=== PATIENT | female | born 1995 | race Caucasian/White ===

== ENCOUNTER → 2017-01-07 | Outpatient (CLI) | payer OTHER | END | disposition home or self-care (01) | LOC: LABWHC1 10:21 | PROVIDERS: ATTEND Obstetrics & Gynecology | DX: Z34.00 Encounter for supervision of normal first pregnancy, unspecified trimester (principal); Z3A.00 Weeks of gestation of pregnancy not specified | CPT/HCPCS: 36415; 84702 ==

== ENCOUNTER → 2017-01-15 | Outpatient (CLI) | payer OTHER | END | disposition home or self-care (01) | LOC: LABWHC1 17:08 | PROVIDERS: ATTEND Obstetrics & Gynecology | DX: O02.1 Missed abortion (principal); Z3A.00 Weeks of gestation of pregnancy not specified | CPT/HCPCS: 36415; 84702 ==

== ENCOUNTER → 2017-07-11 | Outpatient (CLI) | payer OTHER ==
--- NOTE | 2017-07-11 19:47 | US ---
EXAMINATION TYPE: Transabdominal DATE OF EXAM: 07/01/17 COMPARISON: NONE CLINICAL HISTORY: Z36 CONFIRM DATES. Confirm dates EXAM PERFORMED: Transabdominal (TA) EXAM MEASUREMENTS: GESTATIONAL AGE / DATING Physician Established: not yet established Dates by LMP: (14 weeks/6 days) EDC: 01/03/18 Dates by First Scan: No previous this is first scan Dates by Current Scan for: (13 weeks/6 days) EDC: 01/10/18 MATERNAL ANATOMY Uterus: 14.1 x 5.3 x 9.5cm Right Ovary: 3.5 x 1.7 x 1.7cm Left Ovary: 3.4 x 2.4 x 2.3cm Post CDS / Adnexa: wnl Presence of free fluid: no GESTATION / SURVEY CRL: 7.2cm (13 weeks/3 days) Yolk Sac (normal less than 6mm): 0.4cm Heart Rate: 163 bpm Rhythm: Normal IUP: Viable IUP Date of LMP: 03/29/17 Beta HcG (if available): Not available at this time Single viable IUP 13wks/6days with BEATA of 01/10/18. IMPRESSION: Ultrasound gestational age is 13 weeks and 6 days. No complicating process seen.
== END | disposition home or self-care (01) ==
LOC: RADUSWWP 16:16
PROVIDERS: ATTEND Obstetrics & Gynecology
DX: Z36.89 Encounter for other specified antenatal screening (principal); Z3A.13 13 weeks gestation of pregnancy
CPT/HCPCS: 76801

== ENCOUNTER 2018-01-06 06:01 | Inpatient (IN) | payer OTHER ==
[2018-01-06] MEDS ORDERED: CARBOPROST TROMETHAMINE 250 MCG/ML 1 ML AMP IM PRN (06:14)
[2018-01-06] MEDS ORDERED: OXYTOCIN 10 UNIT/ML 1 ML VIAL IM PRN (06:14)
[2018-01-06] MEDS ORDERED: LIDOCAINE 0.5% (PF) 5 MG/ML (50 ML SDV) SQ PRN (06:14)
[2018-01-06] MEDS ORDERED: TERBUTALINE 1 MG/ML VIAL SQ PRN (06:14)
[2018-01-06] MEDS ORDERED: METHYLERGONOVINE 0.2 MG/ML 1 ML AMP IM PRN (06:14)
[2018-01-06] MEDS ORDERED: OXYTOCIN 20 UNITS/1000 ML NS 1,000 ML IV SCH (06:14)
--- NOTE | 2018-01-06 06:19 | P.HPOB ---
History of Present Illness H&P Date: 01/06/18 Chief Complaint: Requested induction of labor. This patient is a pleasant 22-year-old 2 para 0 female estimated date of confinement 01/10/2018 estimated gestational age 39-3/7 weeks who presents to labor and delivery for requested induction of labor. Patient's care for the most part was uncomplicated. She did have an ultrasound done here which showed a possible cleft lip however she was referred to maternal- medicine and there was no evidence of cleft lip or palate. Patient has been quite uncomfortable and has requested induction at this time. Review of Systems Gastrointestinal: Reports heartburn Genitourinary: Reports Menstruation: Reports amenorrhea Past Medical History Past Medical History: No Reported History History of Any Multi-Drug Resistant Organisms: None Reported Past Surgical History: No Surgical Hx Reported Past Anesthesia/Blood Transfusion Reactions: No Reported Reaction Past Psychological History: No Psychological Hx Reported Smoking Status: Never smoker Past Alcohol Use History: None Reported Past Drug Use History: None Reported Medications and Allergies Allergies Allergy/AdvReac Type Severity Reaction Status Date / Time No Known Allergies Allergy Verified 01/06/18 06:14 Exam - OBG Physical Exam Abdomen: bowel sounds normal, no diffuse tenderness, no bruit present, no guarding noted, no hepatomegaly, no splenomegaly, no mass Vulva: both: normal Vagina: normal moisture, no discharge Cervix: no lesion (Cervix in the office was 3 cm and 50% effaced.), no discharge Uterus: enlarged (Fundal height is 37 cm) Results blood work shows she is O positive, rubella nonimmune, RPR is nonreactive, hepatitis B is negative, HIV was nonreactive, toxoplasmosis was negative, Glucola was normal, ultrasounds as above,, group B strep was negative. Assessment and Plan Assessment: This is a pleasant 22-year-old 2 para 0 female 39-3/7 weeks gestation who is requesting elective induction of labor at this time. Plan is induction of labor and anticipate vaginal delivery. (1) Third trimester Current Visit: Yes Status: Acute Code(s): Z34.93 - ENCNTR FOR SUPRVSN OF NORMAL PREG, UNSP, THIRD TRIMESTER SNOMED Code(s): 51797429 (2) Elective induction of labor planned Current Visit: Yes Status: Acute Code(s): EVT6669 - SNOMED Code(s): 835004277
[2018-01-06] MEDS: LACTATED RINGERS 1,000 ML IV SCH ×3 (06:21→13:18)
[2018-01-06 06:36] LABS: Basophils % (A) 0 %; Eosinophils # (A) 0.1 k/uL (0-0.7); Eosinophils % (A) 1 %; HCT 34.6 % (34.0-46.0); HGB 11.5 gm/dL (11.4-16.0); Lymphocytes # (A) 1.5 k/uL (1.0-4.8); Lymphocytes % (A) 21 %; MCH 29.7 pg (25.0-35.0); MCHC 33.3 g/dL (31.0-37.0); MCV 89.3 fL (80.0-100.0); Mean Platelet Volume 7.9; Monocytes # (A) 0.4 k/uL (0-1.0); Monocytes % (A) 6 %; Neutrophils % (A) 70 %; Platelet Count 214 k/uL (150-450); RBC 3.88 m/uL (3.80-5.40); RDW 12.9 % (11.5-15.5); WBC 7.2 k/uL (3.8-10.6)
[2018-01-06 06:44] VITALS: BMI 29.0
[2018-01-06] MEDS ORDERED: BUTORPHANOL 1 MG/ML 1 ML VIAL IV PRN (07:52)
[2018-01-06] MEDS ORDERED: fentaNYL (PF) 50 MCG/ML 5 ML AMP ONE (13:00)
[2018-01-06] MEDS ORDERED: ROPIVACAINE 5MG/ML 20ML VIAL ONE (13:00)
[2018-01-06] MEDS ORDERED: SODIUM CHLORIDE 0.9% 100 ML BAG ONE (13:00)
[2018-01-06] MEDS ORDERED: SIMETHICONE 80 MG CHEWABLE PO PRN (16:53)
[2018-01-06] MEDS ORDERED: LANOLIN CREAM 5 GM TUBE TOPICAL PRN (16:53)
[2018-01-06] MEDS ORDERED: ZOLPIDEM 5 MG TAB PO PRN (16:53)
[2018-01-06] MEDS ORDERED: HYDROCORTISONE 2.5% RECTAL CREAM 30 GM TUBE RECTAL PRN (16:53)
[2018-01-06] MEDS ORDERED: diphenhydrAMINE 25 MG CAP PO PRN (16:53)
[2018-01-06] MEDS ORDERED: BENZOCAINE/MENTHOL SPRAY 1 GM/SPRAY AEROSOL TOPICAL PRN (16:53)
[2018-01-06] MEDS ORDERED: diphenhydrAMINE 50 MG/ML 1 ML VIAL IVP PRN (16:53)
[2018-01-06] MEDS ORDERED: WITCH HAZEL 1 EACH MED..PAD TOPICAL PRN (16:53)
[2018-01-06] MEDS ORDERED: BISACODYL 10 MG SUPP RECTAL PRN (16:53)
--- NOTE | 2018-01-06 17:08 | P.PROBDLV ---
Vaginal Delivery Note - . Vaginal Delivery Note: Normal vaginal delivery viable female Apgars 9 and 9 delivery time is 1645 hrs. Please see dictated H&P for intimate details of this patient's admission. In brief summary this is a pleasant 22-year-old 2 para 0 female 39-3/7 weeks gestation who is admitted to labor and delivery for requested induction of labor. On admission patient is 3-4 simmers dilated has artificial rupture membranes for clear fluid. Labor is induced with Pitocin per protocol. Labor progresses and she gets one dose of Stadol and then request an epidural. Patient quickly thereafter gets to complete. Patient's epidural is quite dense and she has no urge to push so at this time the epidural was discontinued and the patient is allowed to labor down until she has the urge to push at this time she pushes in the head crowned. We have controlled delivery of the 's head over the intact perineum. Mouth and nares are bulb suctioned. There is a loose nuchal cord which the she spontaneously delivers through the anterior posterior shoulder without maternal effort. This is a vigorous viable female infant Apgars are 9 and 9 delivery time was 1645 hrs. is late on the mother's abdomen. After the cord is done pulsating is doubly clamped and then cut. It appears to be trivascular. The placenta is then spontaneously delivered intact and cord blood was obtained due to her being O positive blood type. Inspection of perineum shows a small first-degree posterior laceration that is repaired with 3-0 Vicryl usual fashion. Excellent reapproximation is noted. Estimated blood loss is 150 mL. There are no complications. Infant and mother stable in delivery room.
[2018-01-06] MEDS: IBUPROFEN 600 MG TAB PO PRN (17:13)
[2018-01-06] MEDS: SENNOSIDES-DOCUSATE SODIUM 1 EACH TAB PO SCH ×2 (18:09→21:43)
--- NOTE | 2018-01-07 06:29 | P.PNOBGVD ---
Subjective - Subjective Patient reports: Reports appetite normal, Reports voiding normally, Reports pain well controlled, Reports ambulating normally : doing well Objective - Latest Vital Signs Latest vital signs: Vital Signs Temp Pulse Resp BP Pulse Ox 01/07/18 04:00 98.4 F 85 14 104/75 01/07/18 00:00 98.3 F 97 16 92/54 01/06/18 19:00 97.0 F L 107 H 16 115/58 01/06/18 18:30 111 H 15 101/56 01/06/18 18:00 120 H 105/51 01/06/18 17:45 98.9 F 116 H 18 128/63 97 01/06/18 17:30 97 114/63 01/06/18 17:15 98.3 F 107 H 18 109/56 01/06/18 17:00 98.6 F 109 H 18 113/56 Intake and Output 01/06/18 01/06/18 01/07/18 14:59 22:59 06:59 Intake Total 31.3 Balance 31.3 Intake: Intake, IV Titration 31.3 Amount Oxytocin 20 Units/1000 ml 31.3 Ns 1,000 ml @ 1 MILLIUNIT/MIN 3 mls/hr IV .Q24H SYLVIA Rx#:[id number] Other: # Voids 1 2 - Exam Lungs: bilateral: normal Chest: Normal S1, Normal S2 Extremities: Present: normal Abdomen: Present: normal appearance, soft Uterus: Present: normal, firm Assessment and Plan Assessment: day #1. Patient is resting without complaints and wishes to go home. Vital signs are stable she is afebrile. Uterus is firm nontender and she is having normal lochia. My impression this is a normal course. Plan is to continue routine care discharge home later tonight. (1) Third trimester Current Visit: Yes Status: Acute Code(s): Z34.93 - ENCNTR FOR SUPRVSN OF NORMAL PREG, UNSP, THIRD TRIMESTER SNOMED Code(s): 90835368 (2) Elective induction of labor planned Current Visit: Yes Status: Acute Code(s): AGT1506 - SNOMED Code(s): 880496730
--- NOTE | 2018-01-07 06:33 | P.DS ---
Providers Date of admission: 01/06/18 06:01 Expected date of discharge: 01/07/18 Attending physician: Greyson Henderson Primary care physician: Stated None - Discharge Diagnosis(es) (1) Third trimester Current Visit: Yes Status: Acute (2) Elective induction of labor planned Current Visit: Yes Status: Acute Hospital Course: Please see dictated H&P for intimate details of this patient's admission. Brief summary is a pleasant 22-year-old 2 para 0 female 39-3/7 weeks gestation admitted to labor and delivery for requested induction of labor. Patient is admitted has uncomplicated induction of labor quickly goes on have a vaginal delivery viable female infant. Please see dictated delivery note. day 1 patient is without complaints wishes to go home. Patient's felt be stable for discharge home follow up with me in 6 weeks. Procedures: Induction of labor and normal vaginal delivery Patient Condition at Discharge: Good Plan - Discharge Summary New Discharge Prescriptions: New Ibuprofen [Motrin] 600 mg PO Q6HR PRN #40 tab PRN Reason: Mild Pain Or Fever >= 100.5 Discharge Medication List Ibuprofen [Motrin] 600 mg PO Q6HR PRN #40 tab 01/07/18 [Rx] Follow up Appointment(s)/Referral(s): Greyson Henderson MD [STAFF PHYSICIAN] - 02/17/18 11:15 am Patient Instructions/Handouts: Vaginal Delivery (DC) Activity/Diet/Wound Care/Special Instructions: No intercourse or anything per vagina for 6 weeks. Please call if any fever, chills, excessive vaginal bleeding, and/or abdominal pain. Discharge Disposition: HOME SELF-CARE
[2018-01-07] MEDS: SENNOSIDES-DOCUSATE SODIUM 1 EACH TAB PO SCH ×2 (08:04→21:12)
[2018-01-07] MEDS: IBUPROFEN 600 MG TAB PO PRN ×2 (08:04→20:03)
[2018-01-07] MEDS ORDERED: MEASLES-MUMPS-RUBELLA VACC/PF 12,500 UNIT/0.5 ML VIAL SQ ONE (09:57)
[2018-01-07] MEDS: ACETAMINOPHEN TAB 325 MG TAB PO PRN (23:09)
[2018-01-08 00:23] VITALS: TEMP 98
--- NOTE | 2018-01-08 06:30 | P.PNOBGVD ---
Subjective - Subjective Patient reports: Reports appetite normal, Reports voiding normally, Reports pain well controlled, Reports ambulating normally : doing well Objective - Latest Vital Signs Latest vital signs: Vital Signs Temp Pulse Resp BP 01/07/18 23:15 98.0 F 99 14 92/45 01/07/18 16:00 97.7 F 90 18 104/58 01/07/18 08:00 97.8 F 98 18 100/65 - Exam Lungs: bilateral: normal Chest: Normal S1, Normal S2 Extremities: Present: normal Abdomen: Present: normal appearance, soft Uterus: Present: normal, firm Assessment and Plan Assessment: Post day #2. Patient is resting without complaints. Patient's baby had some jaundice yesterday and therefore she did not go home last night is planned. Plan today is to continue routine care discharge home later today. (1) Third trimester Current Visit: Yes Status: Acute Code(s): Z34.93 - ENCNTR FOR SUPRVSN OF NORMAL PREG, UNSP, THIRD TRIMESTER SNOMED Code(s): 21277411 (2) Elective induction of labor planned Current Visit: Yes Status: Acute Code(s): URI2052 - SNOMED Code(s): 249785130
[2018-01-08] MEDS: IBUPROFEN 600 MG TAB PO PRN (07:07)
[2018-01-08 08:13] VITALS: BP 109/69; PULSE 92; RESP 18
[2018-01-08] MEDS: SENNOSIDES-DOCUSATE SODIUM 1 EACH TAB PO SCH (08:27)
[2018-01-08] MEDS: ACETAMINOPHEN TAB 325 MG TAB PO PRN (13:15)
== END 2018-01-08 15:41 | disposition home or self-care (01) | DRG 807 ==
LOC: 4FBP 06:01
PROVIDERS: ADMIT Obstetrics & Gynecology; ATTEND Obstetrics & Gynecology
PROC: 10E0XZZ Delivery of Products of Conception, External Approach (ICD-10-PCS; principal; 2018-01-06)
PROC: 0HQ9XZZ Repair Perineum Skin, External Approach (ICD-10-PCS; 2018-01-06)
PROC: 00HU33Z Insertion of Infusion Device into Spinal Canal, Percutaneous Approach (ICD-10-PCS; 2018-01-06)
PROC: 3E0R3BZ Introduction of Anesthetic Agent into Spinal Canal, Percutaneous Approach (ICD-10-PCS; 2018-01-06)
PROC: 3E033VJ Introduction of Other Hormone into Peripheral Vein, Percutaneous Approach (ICD-10-PCS; 2018-01-06)
PROC: 10907ZC Drainage of Amniotic Fluid, Therapeutic from Products of Conception, Via Natural or Artificial Opening (ICD-10-PCS; 2018-01-06)
PROC: 3E0134Z Introduction of Serum, Toxoid and Vaccine into Subcutaneous Tissue, Percutaneous Approach (ICD-10-PCS; 2018-01-07)
DX: O69.81X0 Labor and delivery complicated by cord around neck, without compression, not applicable or unspecified (principal); Z37.0 Single live birth; O70.0 First degree perineal laceration during delivery; Z3A.39 39 weeks gestation of pregnancy; Z23 Encounter for immunization
CPT/HCPCS: 85025; 86850; 86900; 86901

== ENCOUNTER 2019-12-02 06:00 | Inpatient (IN) | payer OTHER ==
--- NOTE | 2019-12-01 13:27 | P.HPOB ---
History of Present Illness H&P Date: 12/01/19 Chief Complaint: Polyhydraminios, induction of labor This patient is a pleasant 24 yr female estimated date of confinement 12/09/2019 estimated gestational age 39 wks who presents for delivery secondary to mild polyhydraminos and maternal discomfort. Patient was found to have an NUVIA of 30cm at 35wks. Serial ultrasounds have show this to be stable (last was 26) and NST normal. Cervix is favorable and I have advised delivery at this time. has otherwise been uncomplicated. Review of Systems Genitourinary: Reports Menstruation: Reports amenorrhea Past Medical History Past Medical History: No Reported History Additional Past Medical History / Comment(s): Previous term vaginal delivery baby girl 2018 History of Any Multi-Drug Resistant Organisms: None Reported Past Surgical History: No Surgical Hx Reported Additional Past Surgical History / Comment(s): [place] teeth removed Past Anesthesia/Blood Transfusion Reactions: No Reported Reaction Past Psychological History: No Psychological Hx Reported Past Alcohol Use History: None Reported Past Drug Use History: None Reported - Past Family History Mother Family Medical History: Blood Disorder Additional Family Medical History / Comment(s): ITP autoimmune disorder Medications and Allergies Home Medications Medication Instructions Recorded Confirmed Type Ibuprofen [Motrin] 600 mg PO Q6HR PRN #40 tab 01/07/18 Rx Allergies Allergy/AdvReac Type Severity Reaction Status Date / Time No Known Allergies Allergy Verified 01/06/18 06:14 Exam - OBG Physical Exam Abdomen: bowel sounds normal, no diffuse tenderness, no bruit present, no guarding noted, no hepatomegaly, no splenomegaly, no mass Vulva: both: normal Vagina: normal moisture, no discharge Cervix: no lesion (Cervix in the office is 2cm), no discharge Uterus: enlarged (Fundal height was 38 cm) Results labs: O positive, Rubella Non-Immune, RPR-Hep B negative, Glucola 131, GBS negative. Ultrasound as above. Assessment and Plan Assessment: This is a pleasant 24 yr female 39 weeks gestation with mild polyhydraminos and maternal discomfort who presents for induction of labor. Plan is induction of labor and anticipate . (1) 39 weeks gestation of Status: Acute Code(s): Z3A.39 - 39 WEEKS GESTATION OF SNOMED Code(s): 74639556 (2) Polyhydramnios affecting in third trimester Status: Acute Code(s): O40.3XX0 - POLYHYDRAMNIOS, THIRD TRIMESTER, NOT APPLICABLE OR UNSP SNOMED Code(s): 045440033 (3) Elective induction of labor planned Status: Acute Code(s): HQA6782 - SNOMED Code(s): 575335408
[2019-12-02] MEDS ORDERED: TERBUTALINE 1 MG/ML VIAL SQ PRN (06:13)
[2019-12-02] MEDS ORDERED: LACTATED RINGERS 1,000 ML IV SCH (06:13)
[2019-12-02] MEDS ORDERED: OXYTOCIN 30 UNITS/500 ML NS 30 UNIT in SALINE 1 500ML.BAG IV SCH (06:13)
[2019-12-02] MEDS ORDERED: LIDOCAINE 0.5% (PF) 5 MG/ML (50 ML SDV) SQ PRN (06:13)
[2019-12-02] MEDS ORDERED: OXYTOCIN 10 UNIT/ML 1 ML VIAL IM PRN (06:13)
[2019-12-02] MEDS ORDERED: CARBOPROST TROMETHAMINE 250 MCG/ML 1 ML AMP IM PRN (06:13)
[2019-12-02] MEDS ORDERED: METHYLERGONOVINE 0.2 MG/ML 1 ML AMP IM PRN (06:13)
[2019-12-02 06:54] LABS: Basophils % (A) 0 %; Eosinophils # (A) 0.1 k/uL (0-0.7); Eosinophils % (A) 1 %; HCT 33.5 % (34.0-46.0); Lymphocytes # (A) 1.6 k/uL (1.0-4.8); Lymphocytes % (A) 23 %; MCH 28.6 pg (25.0-35.0); MCHC 32.7 g/dL (31.0-37.0); MCV 87.3 fL (80.0-100.0); Mean Platelet Volume 8.2; Monocytes # (A) 0.4 k/uL (0-1.0); Monocytes % (A) 6 %; Neutrophils # (A) 4.6 k/uL (1.3-7.7); Neutrophils % (A) 68 %; Platelet Count 215 k/uL (150-450); RBC 3.84 m/uL (3.80-5.40); RDW 13.5 % (11.5-15.5); WBC 6.7 k/uL (3.8-10.6)
[2019-12-02] MEDS ORDERED: diphenhydrAMINE 50 MG/ML 1 ML VIAL IVP PRN (13:54)
[2019-12-02] MEDS ORDERED: OXYTOCIN 20 UNITS/1000 ML NS 1,000 ML IV SCH (13:54)
[2019-12-02] MEDS ORDERED: BENZOCAINE/MENTHOL SPRAY 1 GM/SPRAY AEROSOL TOPICAL PRN (13:54)
[2019-12-02] MEDS ORDERED: ZOLPIDEM 5 MG TAB PO PRN (13:54)
[2019-12-02] MEDS ORDERED: SIMETHICONE 80 MG CHEWABLE PO PRN (13:54)
[2019-12-02] MEDS ORDERED: diphenhydrAMINE 25 MG CAP PO PRN (13:54)
[2019-12-02] MEDS ORDERED: LANOLIN CREAM 5 GM TUBE TOPICAL PRN (13:54)
[2019-12-02] MEDS ORDERED: bisacodyL 10 MG SUPP RECTAL PRN (13:54)
[2019-12-02] MEDS ORDERED: HYDROCORTISONE 2.5% RECTAL CREAM 30 GM TUBE RECTAL PRN (13:54)
[2019-12-02] MEDS ORDERED: ACETAMINOPHEN TAB 325 MG TAB PO PRN (13:54)
[2019-12-02] MEDS: IBUPROFEN 600 MG TAB PO PRN ×2 (14:17→21:49)
--- NOTE | 2019-12-02 18:46 | P.PROBDLV ---
Vaginal Delivery Note - . Vaginal Delivery Note: Normal vaginal delivery viable male infant Apgars 9 and 9 delivery time is 1321 hrs. Please see dictated H&P for intimate details of this patient's admission. Brief summary is a pleasant 24-year-old 3 para 1 female 39-0/7 weeks gestation who is admitted to labor and delivery for induction of labor secondary to polyhydramnios. On admission patient is 3-4 cm dilated has artificial rupture membranes for clear fluid. Labor is induced with Pitocin per protocol. Patient does not request anything for pain control. Patient's labor progresses and she gets to complete. Patient pushes the head to the perineum and the posterior perineum is supported we have controlled delivery of the infant's head over the intact perineum. Mouth and nares are bulb suctioned. There is no evidence of a nuchal cord. Patient continues to push and deliver the anterior and posterior shoulder and rest this infant's body. This is a vigorous viable male infant Apgars 9 and 9 delivery time is 1321 hrs. After delivery of the infant the umbilical cords doubly clamped and cut appears to be trivascular. Placenta is then spontaneously delivered intact. Estimated blood loss is 200 mL. First-degree posterior laceration was repaired with 3-0 Vicryl usual fashion in good reapproximation is noted. All counts correct 3. There are no complications. Infant and mother stable delivery room.
[2019-12-02] MEDS: SENNOSIDES-DOCUSATE SODIUM 1 EACH TAB PO SCH (19:53)
[2019-12-03] MEDS: IBUPROFEN 600 MG TAB PO PRN ×3 (05:58→23:03)
--- NOTE | 2019-12-03 07:10 | P.PNOBGVD ---
Subjective - Subjective Patient reports: Reports appetite normal, Reports voiding normally, Reports pain well controlled, Reports ambulating normally : doing well Objective - Latest Vital Signs Latest vital signs: Vital Signs Temp Pulse Resp BP 12/03/19 00:00 98.1 F 80 16 103/68 12/02/19 20:00 98.1 F 98 16 112/57 12/02/19 15:55 98.2 F 85 16 108/64 12/02/19 15:10 89 16 103/56 12/02/19 14:35 85 16 105/55 12/02/19 14:20 100 16 106/59 12/02/19 14:05 118 H 16 104/64 12/02/19 13:50 89 16 104/59 12/02/19 13:35 130 H 16 105/54 12/02/19 08:08 98.2 F 94 16 100/62 Intake and Output 12/02/19 12/03/19 12/03/19 22:59 06:59 14:59 Other: # Voids 1 3 - Exam Lungs: bilateral: normal Chest: Normal S1, Normal S2 Extremities: Present: normal Abdomen: Present: normal appearance, soft Uterus: Present: normal, firm Assessment and Plan Assessment: day #1. Patient is resting without complaints and wishes to go home. Vital signs are stable and she is afebrile. Uterus is firm nontender she's having normal lochia. My impression this is a normal course. Plan is to continue routine care discharge home later today (1) 39 weeks gestation of Current Visit: No Status: Acute Code(s): Z3A.39 - 39 WEEKS GESTATION OF SNOMED Code(s): 11376441 (2) Polyhydramnios affecting in third trimester Current Visit: No Status: Acute Code(s): O40.3XX0 - POLYHYDRAMNIOS, THIRD TRIMESTER, NOT APPLICABLE OR UNSP SNOMED Code(s): 222217814 (3) Elective induction of labor planned Current Visit: No Status: Acute Code(s): LWI9502 - SNOMED Code(s): 837628741
--- NOTE | 2019-12-03 07:15 | P.DS ---
Providers Date of admission: 12/02/19 06:07 Expected date of discharge: 12/03/19 Attending physician: Greyson Henderson Primary care physician: Stated None - Discharge Diagnosis(es) (1) 39 weeks gestation of Current Visit: No Status: Acute (2) Polyhydramnios affecting in third trimester Current Visit: No Status: Acute (3) Elective induction of labor planned Current Visit: No Status: Acute Hospital Course: Please see dictated H&P for intimate details of this patient's admission. Brief summary this pleasant 24-year-old 2 para 1 female 39 weeks gestation admitted to labor and delivery for induction of labor secondary to polyhydramnios. Patient is admitted she is uncomplicated induction of labor was on have a vaginal delivery viable male infant. Please see dictated delivery note. day #1 patient is without complaints wishes to go home. Patient's felt to be stable for discharge home follow up with me in 6 weeks. Procedures: Induction of labor and normal vaginal delivery Patient Condition at Discharge: Good Plan - Discharge Summary New Discharge Prescriptions: New Ibuprofen [Motrin] 600 mg PO Q6HR PRN #40 tab PRN Reason: Mild Pain Or Fever >= 100.5 No Action Pnv No.95/Ferrous Fum/Folic AC [ Multivitamin Tablet] 1 tab PO ONCE Discharge Medication List Pnv No.95/Ferrous Fum/Folic AC [ Multivitamin Tablet] 1 tab PO ONCE 12/02/19 [History] Ibuprofen [Motrin] 600 mg PO Q6HR PRN #40 tab 12/03/19 [Rx] Follow up Appointment(s)/Referral(s): Greyson Henderson MD [STAFF PHYSICIAN] - 01/13/20 8:45 am Patient Instructions/Handouts: Vaginal Delivery (DC) Activity/Diet/Wound Care/Special Instructions: No intercourse or anything per vagina for 6 weeks. Please call if any fever, chills, excessive vaginal bleeding, and/or abdominal pain. Discharge Disposition: HOME SELF-CARE
[2019-12-03] MEDS: SENNOSIDES-DOCUSATE SODIUM 1 EACH TAB PO SCH ×3 (07:40→21:33)
[2019-12-04] MEDS: SENNOSIDES-DOCUSATE SODIUM 1 EACH TAB PO SCH ×2 (08:37→20:55)
[2019-12-04] MEDS: IBUPROFEN 600 MG TAB PO PRN ×2 (13:19→20:50)
[2019-12-04 21:51] VITALS: BP 110/71; PULSE 87; RESP 18; TEMP 98.1
== END 2019-12-04 22:15 | disposition home or self-care (01) | DRG 807 ==
LOC: 4FBP 06:07
PROVIDERS: ADMIT Obstetrics & Gynecology; ATTEND Obstetrics & Gynecology
PROC: 0HQ9XZZ Repair Perineum Skin, External Approach (ICD-10-PCS; principal; 2019-12-02)
PROC: 10E0XZZ Delivery of Products of Conception, External Approach (ICD-10-PCS; principal; 2019-12-02)
DX: O40.3XX0 Polyhydramnios, third trimester, not applicable or unspecified (principal); Z37.0 Single live birth; Z3A.39 39 weeks gestation of pregnancy; O70.0 First degree perineal laceration during delivery; Z83.2 Family history of diseases of the blood and blood-forming organs and certain disorders involving the immune mechanism
CPT/HCPCS: 85025; 86850; 86900; 86901; 88307

== ENCOUNTER → 2021-01-03 | Outpatient (CLI) | payer OTHER ==
--- NOTE | 2021-01-03 15:19 | US ---
EXAMINATION TYPE: Transabdominal DATE OF EXAM: 01/03/2021 2:29 PM COMPARISON: NONE CLINICAL HISTORY: Z36 Confirm dates. EXAM PERFORMED: Transabdominal (TA) EXAM MEASUREMENTS: GESTATIONAL AGE / DATING Physician Established: Not yet established Dates by LMP: unknown Dates by First Scan: No previous this is first scan Dates by Current Scan for: (13 weeks/6 days) EDC: 07/05/2021 MATERNAL ANATOMY Uterus: 15.3 x 6.9 x 12.2 cm Right Ovary: 2.9 x 1.9 x 3.6 cm Left Ovary: 3.6 x 2.6 x 3.7 cm Post CDS / Adnexa: wnl Presence of free fluid: none GESTATION / SURVEY CRL: 7.8 cm (13 weeks/6 days) Yolk Sac (normal less than 6mm): not seen Heart Rate: 143 bpm Rhythm: Normal IUP: Viable IUP Date of LMP: unknown Beta HcG (if available): not available Viable IUP. IMPRESSION: 1. Single intrauterine gestation estimated at 13 weeks 6 days gestation based on crown-rump length. C ardiac activity measures 143 bpm. 2. Placenta may be low lying and follow-up anatomy evaluation is recommended to evaluate for pl acenta previa.
== END | disposition home or self-care (01) ==
LOC: RADUSWWP 14:13
PROVIDERS: ATTEND Obstetrics & Gynecology
DX: Z36.0 Encounter for antenatal screening for chromosomal anomalies (principal); Z3A.16 16 weeks gestation of pregnancy
CPT/HCPCS: 76801

== ENCOUNTER 2021-06-21 15:29 | Outpatient (CLI) | payer OTHER ==
[2021-06-21 16:22] VITALS: BP 116/69; PULSE 86; RESP 16; TEMP 97.2
--- NOTE | 2021-06-24 11:24 | P.MSEPDOC ---
Presenting Problems - Arrival Data Date of Arrival on Unit: 06/21/21 Time of Arrival on Unit: 15:29 Mode of Transport: Ambulatory - Complaint OB-Reason for Admission/Chief Complaint: Decreased Movement Medical History - Information : 4 Para: 2 Term: 2 : 0 Abortions: Spontaneous or Elective: 1 Number of Living Children: 2 - Gestational Age Gestational Age by BEATA (wks/days): 38 Weeks and 0 Days Review of Systems - Review of Systems Constitutional: No problems Breast: No problems ENT: No problems Cardiovascular: No problems Respiratory: No problems Gastrointestinal: No problems Genitourinary: No problems Musculoskeletal: No problems Neurological: No problems Skin: No problems Vital Signs - Temperature Temperature: 97.2 F Temperature Source: Temporal Artery Scan - Pulse Right Sitting Pulse Rate: 86 Pulse Assessment Method: Automatic Cuff - Respirations Respiratory Rate: 16 Oxygen Delivery Method: Room Air - Blood Pressure Right Arm Blood Pressure: 116/69 Blood Pressure Mean: 84 Blood Pressure Source: Automatic Cuff Medical Screen Scoring - Cervical Exam Dilation (cm): 2 Effacement (%): 60 Station: -2 Membranes: Intact - Uterine Contractions Intensity: Mild Resting: Soft to palpation - Assessment - Baby A Baseline FHR: 130 Heart Rate - NICHD Category: Category I (Normal) NST: Reactive Physician Notification - Physician Notified Physician Notified Date: 06/21/21 Physician Notified Time: 16:13 Physician: Ashlyn Dominguez Order Received: Yes (d/c home) Maternal Triage Index - Urgent/Priority 2 Urgent Priority 2: Yes Provider Notified: Ashlyn Dominguez Provider Notified Time: 16:13 Criteria Met for Priority 2: reactive nst Disposition - Disposition OB Disposition: Discharge to home Discharge Date: 06/21/21 Discharge Time: 16:16 I agree with the RN Medical Screening Exam: Yes Case reviewed; plan agreed upon as documented in EMR&OBIX.: Yes Diagnosis: DECREASED MOVEMENTS, THIRD TRIMESTER, UNSP
== END 2021-06-21 16:16 | disposition home or self-care (01) ==
LOC: FBPOP 15:29
PROVIDERS: ATTEND Obstetrics & Gynecology
DX: O36.8130 Decreased fetal movements, third trimester, not applicable or unspecified (principal); Z3A.38 38 weeks gestation of pregnancy
CPT/HCPCS: 59025; G0463; 99213

== ENCOUNTER 2021-06-28 06:00 | Inpatient (IN) | payer OTHER ==
--- NOTE | 2021-06-27 06:25 | P.HPOB ---
History of Present Illness H&P Date: 06/27/21 Chief Complaint: Requested induction of labor This patient is a pleasant 26-year-old 4 para 2 female estimated date of confinement 07/05/2021 estimated gestational age 39-0/7 weeks. Who presents to labor and delivery requested induction of labor. Patient's care has been uncomplicated she is now uncomfortable requesting induction of labor. Review of Systems Genitourinary: Reports Menstruation: Reports amenorrhea Past Medical History Past Medical History: No Reported History Additional Past Medical History / Comment(s): Previous term vaginal delivery 2. History of Any Multi-Drug Resistant Organisms: None Reported Past Surgical History: No Surgical Hx Reported Additional Past Surgical History / Comment(s): [place] teeth removed Past Anesthesia/Blood Transfusion Reactions: No Reported Reaction Past Psychological History: No Psychological Hx Reported Smoking Status: Never smoker Past Alcohol Use History: None Reported Past Drug Use History: None Reported - Past Family History Mother Family Medical History: Blood Disorder Additional Family Medical History / Comment(s): ITP autoimmune disorder Medications and Allergies Home Medications Medication Instructions Recorded Confirmed Type Pnv No.95/Ferrous Fum/Folic AC 1 tab PO ONCE 12/02/19 06/21/21 History [ Multivitamin Tablet] Allergies Allergy/AdvReac Type Severity Reaction Status Date / Time No Known Allergies Allergy Verified 06/21/21 15:43 Exam - OBG Physical Exam Vulva: both: normal Vagina: normal moisture, no discharge Cervix: no lesion (Cervix is 2 cm and soft.), no discharge Uterus: enlarged (Fundal height is 38 cm) Results blood work shows she is O positive, rubella nonimmune, RPR nonreactive, hepatitis B negative, HIV is nonreactive, Glucola was normal, group B strep was negative, most recent ultrasound showed the baby 5 lbs. 9 oz. Assessment and Plan Assessment: This is a pleasant 26-year-old 4 para 2 female 39-0/7 weeks gestation who presents to labor and delivery for requested induction of labor. Plan is induction of labor and anticipate vaginal delivery. (1) 39 weeks gestation of Status: Acute Code(s): Z3A.39 - 39 WEEKS GESTATION OF SNOMED Code(s): 34138193 (2) Elective induction of labor planned Status: Acute Code(s): BWG8149 - SNOMED Code(s): 410991519
[2021-06-28] MEDS ORDERED: OXYTOCIN 10 UNIT/ML 1 ML VIAL IM PRN (06:23)
[2021-06-28] MEDS ORDERED: METHYLERGONOVINE 0.2 MG/ML 1 ML AMP IM PRN (06:23)
[2021-06-28] MEDS ORDERED: TERBUTALINE 1 MG/ML VIAL SQ PRN (06:23)
[2021-06-28] MEDS ORDERED: LIDOCAINE 1% (PF) 10 MG/ML (30 ML SDV) SQ PRN (06:23)
[2021-06-28] MEDS ORDERED: OXYTOCIN 30 UNITS/500 ML NS 30 UNIT in SALINE 1 500ML.BAG IV SCH ×2 (06:23→10:59)
[2021-06-28] MEDS ORDERED: CARBOPROST TROMETHAMINE 250 MCG/ML 1 ML AMP IM PRN (06:23)
[2021-06-28] MEDS: LACTATED RINGERS 1,000 ML IV SCH ×2 (06:44→09:05)
[2021-06-28 06:49] LABS: Basophils % (A) 0 %; Eosinophils % (A) 1 %; HGB 11.2 gm/dL (11.4-16.0); Lymphocytes # (A) 1.7 k/uL (1.0-4.8); Lymphocytes % (A) 31 %; MCH 29.2 pg (25.0-35.0); MCHC 32.8 g/dL (31.0-37.0); Mean Platelet Volume 8.2; Monocytes # (A) 0.3 k/uL (0-1.0); Monocytes % (A) 6 %; Neutrophils # (A) 3.3 k/uL (1.3-7.7); Neutrophils % (A) 59 %; Platelet Count 242 k/uL (150-450); RBC 3.81 m/uL (3.80-5.40); RDW 13.2 % (11.5-15.5); WBC 5.6 k/uL (3.8-10.6)
[2021-06-28] MEDS ORDERED: ROPIVACAINE 100 MG, fentaNYL (PF). 200 MCG in SODIUM CHLORIDE 0.9% 76 ML EPIDURAL ONE (09:08)
[2021-06-28] MEDS ORDERED: bisacodyL 10 MG SUPP RECTAL PRN (10:59)
[2021-06-28] MEDS ORDERED: ACETAMINOPHEN TAB 325 MG TAB PO PRN (10:59)
[2021-06-28] MEDS ORDERED: diphenhydrAMINE 50 MG/ML 1 ML VIAL IVP PRN (10:59)
[2021-06-28] MEDS ORDERED: BENZOCAINE/MENTHOL SPRAY 1 GM/SPRAY AEROSOL TOPICAL PRN (10:59)
[2021-06-28] MEDS ORDERED: HYDROCORTISONE 2.5% RECTAL CREAM 30 GM TUBE RECTAL PRN (10:59)
[2021-06-28] MEDS ORDERED: ZOLPIDEM 5 MG TAB PO PRN (10:59)
[2021-06-28] MEDS ORDERED: LANOLIN CREAM 5 GM TUBE TOPICAL PRN (10:59)
[2021-06-28] MEDS ORDERED: SIMETHICONE 80 MG CHEWABLE PO PRN (10:59)
[2021-06-28] MEDS ORDERED: diphenhydrAMINE 25 MG CAP PO PRN (10:59)
[2021-06-28] MEDS: SENNOSIDES-DOCUSATE SODIUM 1 EACH TAB PO SCH ×2 (11:58→20:13)
[2021-06-28] MEDS: IBUPROFEN 600 MG TAB PO PRN ×2 (11:58→18:18)
--- NOTE | 2021-06-28 12:53 | P.PROBDLV ---
Vaginal Delivery Note - . Vaginal Delivery Note: Normal vaginal delivery viable male infant Apgars 9 and 9 delivery time was 1053 hrs. Please see dictated H&P for intimate details of this patient's admission. In brief summary this is a pleasant 26-year-old 4 para 2 female 39-0/7 weeks gestation is admitted to labor and delivery for requested induction of labor. On admission patient's 3 simmers dilated has artificial rupture membranes for clear fluid. Labor progresses quickly and she does request an epi dural for pain control. Patient quickly gets to complete pushes the head to the perineum. Posterior perineum is supported and we have controlled delivery of 's head over the intact perineum. Mouth and nares are bulb suctioned. She does have a tight nuchal cord initially try to reduce this however this is not possible therefore is doubly clamped and cut and then reduced. After this with gentle downward traction maternal effort we have delivery the anterior and posterior shoulder and rest this 's body. This is a vigorous viable male infant Apgars 9 and 9 delivery time was 1053 hrs. Infant has spontaneous respiration and good cry and grossly appears normal. After delivery of the infant the baby is late on the mother's abdomen. Placenta spontaneously delivered intact. Estimated blood loss about 100 mL. There is a small first-degree posterior laceration repaired with 3-0 Vicryl usual fashion excellent reapproximation is noted. There are no complications. and mother stable delivery room. All counts correct 3.
[2021-06-29] MEDS: IBUPROFEN 600 MG TAB PO PRN ×3 (00:20→13:36)
--- NOTE | 2021-06-29 06:14 | P.PNOBGVD ---
Subjective - Subjective Patient reports: Reports appetite normal, Reports voiding normally, Reports pain well controlled, Reports ambulating normally : doing well Objective - Latest Vital Signs Latest vital signs: Vital Signs Temp Pulse Resp BP Pulse Ox 06/29/21 00:00 98.4 F 90 19 103/58 97 06/28/21 20:00 97.9 F 91 19 112/63 98 06/28/21 15:29 98.1 F 83 17 95/48 06/28/21 13:03 98.2 F 89 17 107/59 06/28/21 12:33 85 17 109/59 06/28/21 12:03 91 18 100/57 06/28/21 11:48 73 17 95/53 06/28/21 11:33 93 17 95/52 06/28/21 11:18 97.8 F 88 17 102/56 06/28/21 11:03 96 17 101/59 06/28/21 06:22 97.5 F L 93 17 107/65 98 Intake and Output 06/28/21 06/28/21 06/29/21 14:59 22:59 06:59 Intake Total 175.4 960 720 Output Total 500 Balance -324.6 960 720 Intake: Intake, IV Titration 175.4 Amount Oxytocin 30 Units/500 ml 175.4 Ns 30 unit In Saline 1 500ml.bag @ Per Protocol IV .Q0M [facility] Rx#:[id number] Oral 960 720 Output: Output, Quantitative 500 Blood Loss Other: # Voids 1 1 1 - Exam Lungs: bilateral: normal Chest: Normal S1, Normal S2 Extremities: Present: normal Abdomen: Present: normal appearance, soft Uterus: Present: normal, firm - Labs Labs: Abnormal Lab Results - Last 24 Hours (Table) 06/28/21 Range/Units 06:25 Hgb 11.2 L (11.4-16.0) gm/dL Assessment and Plan Assessment: day #1. Patient is resting without complaints and wishes to go home. Vital signs are stable she is afebrile. Uterus is firm nontender and she is having normal lochia. My impression this is a normal course. Plan is to continue routine care discharge home later this morning (1) 39 weeks gestation of Current Visit: No Status: Acute Code(s): Z3A.39 - 39 WEEKS GESTATION OF SNOMED Code(s): 07116876 (2) Elective induction of labor planned Current Visit: No Status: Acute Code(s): [id number] - SNOMED Code(s): 925520399
--- NOTE | 2021-06-29 06:17 | P.DS ---
Providers Date of admission: 06/28/21 06:05 Expected date of discharge: 06/29/21 Attending physician: Greyson Henderson Primary care physician: Stated None - Discharge Diagnosis(es) (1) 39 weeks gestation of Current Visit: No Status: Acute (2) Elective induction of labor planned Current Visit: No Status: Acute Hospital Course: Please see dictated H&P for intimate details of this patient's admission. In brief summary this pleasant 26-year-old 4 para 2 female 39-0/7 weeks gestation admitted to labor and delivery for elective induction of labor. Patient is admitted has uncomplicated induction of labor quickly goes on have a vaginal delivery viable male . Please see dictated delivery note. day #1 patient's feeling well wishes to go home. Patient's felt be stable for discharge home follow up with me in 6 weeks. Procedures: Induction of labor and normal vaginal delivery Patient Condition at Discharge: Good Plan - Discharge Summary New Discharge Prescriptions: New Ibuprofen [Motrin] 600 mg PO Q6HR PRN #30 tab PRN Reason: Pain No Action Pnv No.95/Ferrous Fum/Folic AC [ Multivitamin Tablet] 1 tab PO ONCE Discharge Medication List Pnv No.95/Ferrous Fum/Folic AC [ Multivitamin Tablet] 1 tab PO ONCE 12/02/19 [History] Ibuprofen [Motrin] 600 mg PO Q6HR PRN #30 tab 06/29/21 [Rx] Follow up Appointment(s)/Referral(s): Greyson Henderson MD [STAFF PHYSICIAN] - 08/06/21 11:15 am Patient Instructions/Handouts: Vaginal Delivery (DC) Activity/Diet/Wound Care/Special Instructions: No intercourse or anything per vagina for 6 weeks. Please call if any fever, chills, excessive vaginal bleeding, and/or abdominal pain. Discharge Disposition: HOME SELF-CARE
[2021-06-29 07:07] LABS: Basophils % (A) 0 %; Eosinophils # (A) 0.1 k/uL (0-0.7); Eosinophils % (A) 1 %; HCT 30.3 % (34.0-46.0); HGB 9.8 gm/dL (11.4-16.0); Lymphocytes # (A) 1.9 k/uL (1.0-4.8); Lymphocytes % (A) 23 %; MCH 29.1 pg (25.0-35.0); MCHC 32.2 g/dL (31.0-37.0); MCV 90.5 fL (80.0-100.0); Mean Platelet Volume 9.5; Monocytes # (A) 0.4 k/uL (0-1.0); Monocytes % (A) 5 %; Neutrophils # (A) 5.8 k/uL (1.3-7.7); Neutrophils % (A) 69 %; Platelet Count 232 k/uL (150-450); RBC 3.35 m/uL (3.80-5.40); RDW 12.9 % (11.5-15.5); WBC 8.3 k/uL (3.8-10.6)
[2021-06-29] MEDS: SENNOSIDES-DOCUSATE SODIUM 1 EACH TAB PO SCH (09:43)
[2021-06-29 12:23] VITALS: BP 106/72; PULSE 100; RESP 16; TEMP 97.9
== END 2021-06-29 13:44 | disposition home or self-care (01) | DRG 807 ==
LOC: 4FBP 06:05
PROVIDERS: ADMIT Obstetrics & Gynecology; ATTEND Obstetrics & Gynecology
PROC: 10907ZC Drainage of Amniotic Fluid, Therapeutic from Products of Conception, Via Natural or Artificial Opening (ICD-10-PCS; principal; 2021-06-28)
PROC: 10E0XZZ Delivery of Products of Conception, External Approach (ICD-10-PCS; principal; 2021-06-28)
PROC: 0HQ9XZZ Repair Perineum Skin, External Approach (ICD-10-PCS; principal; 2021-06-28)
DX: O69.1XX0 Labor and delivery complicated by cord around neck, with compression, not applicable or unspecified (principal); Z37.0 Single live birth; O70.0 First degree perineal laceration during delivery; Z3A.39 39 weeks gestation of pregnancy; Z98.890 Other specified postprocedural states; Z83.2 Family history of diseases of the blood and blood-forming organs and certain disorders involving the immune mechanism
CPT/HCPCS: 85025; 86850; 86900; 86901

== ENCOUNTER → 2022-09-19 | Outpatient (CLI) | payer OTHER ==
--- NOTE | 2022-09-19 19:08 | US ---
EXAMINATION TYPE: Ultrasound OB <= 14 week fetus DATE OF EXAM: 09/19/2022 12:42 PM COMPARISON: NONE CLINICAL INDICATION: Female, 27 years old with history of Z36.89; Dates. Unknown LMP. EXAM PERFORMED: Transabdominal (TA) EXAM MEASUREMENTS: GESTATIONAL AGE / DATING Physician Established: Not yet established Dates by LMP: LMP unknown Dates by First Scan: No previous this is first scan Dates by Current Scan for: (12 weeks/2 days) EDC: 04/01/2023 MATERNAL ANATOMY Uterus: 13.8 x 8.5 x 6.1 cm Right Ovary: 3.1 x 2.4 x 1.6 cm Left Ovary: 3.5 x 2.8 x 1.8 cm Post CDS / Adnexa: no free fluid Presence of free fluid: no Presence of corpus luteal cyst: no Presence of subchorionic bleed: no GESTATION / SURVEY CRL: 5.5 cm (12 weeks/2 days) MSD: seen, not measured Yolk Sac (normal less than 6mm): not visualized Heart Rate: 165 bpm Rhythm: Normal IUP: Viable IUP Age Appropriate Anatomy Limbs: Visualized Calvarium: Visualized Date of LMP: Unknown, [id number] Beta HcG (if available): Not available at this time IMPRESSION: Single live intrauterine with gestational age of 12 weeks 2 days by CRL. Complete chance vey recommended at 18-20 weeks.
== END | disposition home or self-care (01) ==
LOC: RADUSWWP 12:18
PROVIDERS: ATTEND Obstetrics & Gynecology
DX: Z36.89 Encounter for other specified antenatal screening (principal); Z3A.12 12 weeks gestation of pregnancy
CPT/HCPCS: 76801

== ENCOUNTER 2023-03-28 05:49 | Inpatient (IN) | payer OTHER ==
--- NOTE | 2023-03-27 07:22 | P.HPOB ---
History of Present Illness H&P Date: 03/27/23 Chief Complaint: Requested induction of labor This patient is a pleasant 27-year-old 5 para 3 female estimated date of confinement estimated gestational age 39-3/7 weeks who presents to labor and delivery for requested induction of labor. Patient's care has been uncomplicated. She is uncomfortable and has a favorable cervix requested induction at this time. Review of Systems Genitourinary: Reports Menstruation: Reports amenorrhea Past Medical History Past Medical History: No Reported History Additional Past Medical History / Comment(s): Previous term vaginal delivery 3 History of Any Multi-Drug Resistant Organisms: None Reported Past Surgical History: No Surgical Hx Reported Additional Past Surgical History / Comment(s): [place] teeth removed Past Anesthesia/Blood Transfusion Reactions: No Reported Reaction Past Psychological History: No Psychological Hx Reported Smoking Status: Never smoker Past Alcohol Use History: None Reported Past Drug Use History: None Reported - Past Family History Mother Family Medical History: Blood Disorder Additional Family Medical History / Comment(s): ITP autoimmune disorder Medications and Allergies Home Medications Medication Instructions Recorded Confirmed Type Pnv No.95/Ferrous Fum/Folic AC 1 tab PO ONCE 12/02/19 06/28/21 History [ Multivitamin Tablet] Ibuprofen [Motrin] 600 mg PO Q6HR PRN #30 tab 06/29/21 Rx Allergies Allergy/AdvReac Type Severity Reaction Status Date / Time No Known Allergies Allergy Verified 06/28/21 06:22 Exam - OBG Physical Exam Abdomen: bowel sounds normal, no diffuse tenderness, no bruit present, no guarding noted, no hepatomegaly, no splenomegaly, no mass Vulva: both: normal Vagina: normal moisture, no discharge Cervix: no lesion (Cervix in the office to 3 cm soft), no discharge Uterus: enlarged (Fundal height 38 cm) Results blood work shows she is O+, rubella immune, hepatitis B and C are negative, HIV is nonreactive, growth ultrasounds have been normal, group B strep was negative. Assessment and Plan Assessment: This is a pleasant 27-year-old 5 para 3 female estimated gestational age 39-3/7 weeks who presents to labor and delivery for requested induction of labor. Plan is induction of labor and anticipate vaginal delivery (1) 39 weeks gestation of Status: Acute Code(s): Z3A.39 - 39 WEEKS GESTATION OF SNOMED Code(s): 95318127 (2) Elective induction of labor planned Status: Acute Code(s): [id number] - SNOMED Code(s): 056018997
[2023-03-28] MEDS ORDERED: LIDOCAINE 0.5% (PF) 5 MG/ML (50 ML SDV) SQ PRN (06:02)
[2023-03-28] MEDS ORDERED: OXYTOCIN 10 UNIT/ML 1 ML VIAL IM PRN (06:02)
[2023-03-28] MEDS ORDERED: miSOPROStoL 200 MCG TAB PO PRN (06:02)
[2023-03-28] MEDS ORDERED: TRANEXAMIC 1,000 MG/100ML-NACL 1,000 MG in EMPTY BAG 1 BAG IV PRN (06:02)
[2023-03-28] MEDS ORDERED: TERBUTALINE 1 MG/ML VIAL SQ PRN (06:02)
[2023-03-28] MEDS ORDERED: OXYTOCIN 30 UNITS/500 ML NS 30 UNIT in SALINE 1 500ML.BAG IV SCH ×2 (06:02→10:36)
[2023-03-28] MEDS ORDERED: METHYLERGONOVINE 0.2 MG/ML 1 ML AMP IM PRN (06:02)
[2023-03-28] MEDS ORDERED: CARBOPROST TROMETHAMINE 250 MCG/ML 1 ML AMP IM PRN (06:02)
[2023-03-28] MEDS: LACTATED RINGERS 1,000 ML IV SCH ×2 (06:10→08:15)
[2023-03-28 06:29] LABS: Basophils % (A) 0 %; Eosinophils # (A) 0.1 k/uL (0-0.7); Eosinophils % (A) 1 %; HCT 34.2 % (34.0-46.0); HGB 11.5 gm/dL (11.4-16.0); Lymphocytes # (A) 1.6 k/uL (1.0-4.8); Lymphocytes % (A) 24 %; MCH 29.8 pg (25.0-35.0); MCHC 33.5 g/dL (31.0-37.0); MCV 88.9 fL (80.0-100.0); Mean Platelet Volume 8.9; Monocytes # (A) 0.3 k/uL (0-1.0); Monocytes % (A) 5 %; Neutrophils # (A) 4.5 k/uL (1.3-7.7); Neutrophils % (A) 68 %; Platelet Count 217 k/uL (150-450); RBC 3.84 m/uL (3.80-5.40); RDW 12.9 % (11.5-15.5); WBC 6.6 k/uL (3.8-10.6)
[2023-03-28] MEDS ORDERED: SODIUM CHLORIDE 0.9% 250 ML BAG ONE (07:59)
[2023-03-28] MEDS ORDERED: ROPIVACAINE 5 MG/ML 30 ML VIAL ONE (07:59)
[2023-03-28] MEDS ORDERED: fentaNYL (PF) 50 MCG/ML 5 ML AMP ONE (07:59)
[2023-03-28] MEDS ORDERED: ZOLPIDEM 5 MG TAB PO PRN (10:36)
[2023-03-28] MEDS ORDERED: ACETAMINOPHEN TAB 325 MG TAB PO PRN (10:36)
[2023-03-28] MEDS ORDERED: HYDROCORTISONE 2.5% RECTAL CREAM 30 GM TUBE RECTAL PRN (10:36)
[2023-03-28] MEDS ORDERED: SIMETHICONE 80 MG CHEWABLE PO PRN (10:36)
[2023-03-28] MEDS ORDERED: diphenhydrAMINE 25 MG CAP PO PRN (10:36)
[2023-03-28] MEDS ORDERED: IBUPROFEN 600 MG TAB PO PRN (10:36)
[2023-03-28] MEDS ORDERED: LANOLIN CREAM 5 GM TUBE TOPICAL PRN (10:36)
[2023-03-28] MEDS ORDERED: BENZOCAINE/MENTHOL SPRAY 1 GM/SPRAY AEROSOL TOPICAL PRN (10:36)
[2023-03-28] MEDS ORDERED: diphenhydrAMINE 50 MG/ML 1 ML VIAL IVP PRN (10:36)
[2023-03-28] MEDS ORDERED: bisacodyL 10 MG SUPP RECTAL PRN (10:36)
[2023-03-28] MEDS: SENNOSIDES-DOCUSATE SODIUM 1 EACH TAB PO SCH ×2 (10:44→20:38)
--- NOTE | 2023-03-28 13:09 | P.PROBDLV ---
Vaginal Delivery Note - . Vaginal Delivery Note: Normal vaginal delivery (vacuum assisted) of viable female Apgars Apgars 9 and 9 at 1015 hrs. Please see dictated H&P for intimate details of this patient's admission. In brief summary this is a pleasant 27-year-old 5 para 3 female estimated gestational age 39-1/2 weeks who presented to labor and delivery for requested induction of labor. I admission patient is 4 cm dilated has artificial rupture membranes for clear fluid. Labor is induced with Pitocin per protocol. Patient does request an epidural for pain control and gets this with good relief. Patient quickly progresses to complete and pushes the head to the perineum. Despite good maternal effort, the head is slow to deliver. Patient then developed some bradycardia that is persistent despite the usual resuscitative measures. At this time the head as +2 station and I counseled her and advised to use a vacuum assisted delivery. Patient is agreeable to this and therefore the vacuum is placed. 's head is noted to be occiput anterior presentation. First application vacuum does pop off, however second application is adequate and with maternal effort we then have delivery the 's head. Vacuum was released. There is no evidence of a nuchal cord. The mouth and nares are bulb suctioned. Infant's head is occiput anterior presentation but a bit asynclitic. With gentle downward traction we then have delivery the anterior shoulder and posterior shoulder and rest this 's body. The vigorous viable female infant. appears grossly normal. Apgars are 9 and 9 delivery time is 1015 hrs. The 's umbilical cord is then immediately clamped and cut due to history of jaundice. The infant is in laid on the mother's abdomen. The placenta is then spontaneously delivered intact. Inspection of the perineum shows no lacerations no repair required. Infant and mother are stable delivery room. All counts are correct 3. There are no complications.
[2023-03-28 20:45] VITALS: RESP 16
[2023-03-29 05:59] LABS: Basophils % (A) 0 %; Eosinophils # (A) 0.1 k/uL (0-0.7); Eosinophils % (A) 1 %; HCT 30.5 % (34.0-46.0); HGB 10.2 gm/dL (11.4-16.0); Lymphocytes # (A) 1.7 k/uL (1.0-4.8); Lymphocytes % (A) 23 %; MCHC 33.5 g/dL (31.0-37.0); MCV 89.7 fL (80.0-100.0); Mean Platelet Volume 8.8; Monocytes # (A) 0.4 k/uL (0-1.0); Monocytes % (A) 5 %; Neutrophils # (A) 5.3 k/uL (1.3-7.7); Neutrophils % (A) 70 %; Platelet Count 180 k/uL (150-450); RDW 12.9 % (11.5-15.5); WBC 7.7 k/uL (3.8-10.6)
--- NOTE | 2023-03-29 06:44 | P.PNOBGVD ---
Subjective - Subjective Patient reports: Reports appetite normal, Reports voiding normally, Reports pain well controlled, Reports ambulating normally : doing well Objective - Latest Vital Signs Latest vital signs: Vital Signs Temp Pulse Resp BP Pulse Ox 03/29/23 03:32 97.8 F 86 16 114/72 98 03/29/23 00:00 80 16 111/70 97 03/28/23 20:00 97.9 F 92 16 101/63 95 03/28/23 16:00 98.5 F 76 14 105/62 03/28/23 12:30 98.1 F 112 H 14 109/60 03/28/23 12:00 109 H 14 96/52 03/28/23 11:30 107 H 16 89/54 03/28/23 11:15 98 16 91/54 03/28/23 11:00 100 14 101/59 03/28/23 10:45 97 14 112/59 03/28/23 10:30 97.8 F 105 H 16 107/51 Intake and Output 03/28/23 03/28/23 03/29/23 14:59 22:59 06:59 Intake Total 174.967 Output Total 529 Balance -354.033 Intake: Intake, IV Titration 174.967 Amount Oxytocin 30 Units/500 ml 174.967 Ns 30 unit In Saline 1 500ml.bag @ Per Protocol IV .Q0M [facility] Rx#:[id number] Output: Urine 100 Output, Quantitative 429 Blood Loss Other: # Voids 1 1 2 - Exam Lungs: bilateral: normal Chest: Normal S1, Normal S2 Extremities: Present: normal Abdomen: Present: normal appearance, soft Uterus: Present: normal, firm - Labs Labs: Abnormal Lab Results - Last 24 Hours (Table) 03/29/23 Range/Units 05:09 RBC 3.40 L (3.80-5.40) m/uL Hgb 10.2 L (11.4-16.0) gm/dL Hct 30.5 L (34.0-46.0) % Assessment and Plan Assessment: day #1. Patient is resting without complaints and wishes to go home. Vital signs are stable she's afebrile. Uterus is firm nontender and she is having normal lochia. CBC is pending at time of this dictation. Impression this is a normal course. Plan is to continue routine care, check CBC, discharge home later today. (1) 39 weeks gestation of Current Visit: No Status: Acute Code(s): Z3A.39 - 39 WEEKS GESTATION OF SNOMED Code(s): 47187160 (2) Elective induction of labor planned Current Visit: No Status: Acute Code(s): [id number] - SNOMED Code(s): 322340267
--- NOTE | 2023-03-29 06:50 | P.DS ---
Providers Date of admission: 03/28/23 05:49 Expected date of discharge: 03/29/23 Attending physician: Greyson Henderson Primary care physician: Stated None - Discharge Diagnosis(es) (1) 39 weeks gestation of Current Visit: No Status: Acute (2) Elective induction of labor planned Current Visit: No Status: Acute Hospital Course: Please see dictated H&P for intimate details of this patient's admission. Brief summary this pleasant 27-year-old 5 para 3 female 39-3/7 weeks is admitted to labor and delivery for requested induction of labor. Patient patient goes on to have a viable female infant. day #1 patient's feeling well wishes to go home. Patient's felt be stable for discharge home follow up with me in 6 weeks. Procedures: Normal vaginal delivery (vacuum assisted) Patient Condition at Discharge: Good Plan - Discharge Summary New Discharge Prescriptions: New Ibuprofen [Motrin] 600 mg PO Q6HR PRN #30 tab PRN Reason: Mild Pain (Scale 1 To 3) No Action Pnv No.95/Ferrous Fum/Folic AC [ Multivitamin Tablet] 1 tab PO ONCE Discharge Medication List Pnv No.95/Ferrous Fum/Folic AC [ Multivitamin Tablet] 1 tab PO ONCE 12/02/19 [History] Ibuprofen [Motrin] 600 mg PO Q6HR PRN #30 tab 03/29/23 [Rx] Follow up Appointment(s)/Referral(s): Greyson Henderson MD [STAFF PHYSICIAN] - 05/08/23 11:15 am Patient Instructions/Handouts: Vaginal Delivery (DC) Activity/Diet/Wound Care/Special Instructions: No intercourse or anything per vagina for 6 weeks. Please call if any fever, chills, excessive vaginal bleeding, and/or abdominal pain Discharge Disposition: HOME SELF-CARE
[2023-03-29] MEDS: SENNOSIDES-DOCUSATE SODIUM 1 EACH TAB PO SCH (08:00)
[2023-03-29 08:25] VITALS: BP 100/66; PULSE 90; TEMP 97.7
== END 2023-03-29 11:20 | disposition home or self-care (01) | DRG 807 ==
LOC: 4FBP 05:49
PROVIDERS: ADMIT Obstetrics & Gynecology; ATTEND Obstetrics & Gynecology
PROC: 10E0XZZ Delivery of Products of Conception, External Approach (ICD-10-PCS; principal; 2023-03-28)
PROC: 10907ZC Drainage of Amniotic Fluid, Therapeutic from Products of Conception, Via Natural or Artificial Opening (ICD-10-PCS; 2023-03-28)
PROC: 3E033VJ Introduction of Other Hormone into Peripheral Vein, Percutaneous Approach (ICD-10-PCS; 2023-03-28)
DX: O80 Encounter for full-term uncomplicated delivery (principal); Z37.0 Single live birth; Z3A.39 39 weeks gestation of pregnancy
CPT/HCPCS: 85025; 86850; 86900; 86901

== ENCOUNTER 2024-09-01 13:24 | Emergency (ER) | payer OTHER ==
[2024-09-01 13:28] VITALS: TEMP 98
--- NOTE | 2024-09-01 13:59 | ED ---
Chest Pain HPI - General Chief Complaint: Chest Pain Stated Complaint: chest pain Time Seen by Provider: 09/01/24 13:43 Source: patient, RN notes reviewed, old records reviewed Mode of arrival: ambulatory Limitations: no limitations - History of Present Illness Initial Comments: This is a 29-year-old female to the ER for evaluation of chest pain today. Chest pain in , 17 weeks with left-sided chest pain, dull ache chest pain on the left side of her chest. Symptoms have been persistent for a few days but related to the last day and a half. Patient has history of this chest pain recently and the recurrence is making her concerned. Patient is again 17 weeks no fevers cough or congestion no travel or sick contacts no significant lower extremity swelling or edema. No medical history otherwise - Related Data Home Medications Medication Instructions Recorded Confirmed Pnv No.95/Ferrous Fum/Folic AC 1 tab PO DAILY 12/02/19 09/01/24 [ Multivitamin Tablet] Allergies Allergy/AdvReac Type Severity Reaction Status Date / Time No Known Allergies Allergy Verified 09/01/24 13:54 Review of Systems ROS Statement: Those systems with pertinent positive or pertinent negative responses have been documented in the HPI. ROS Other: All systems not noted in ROS Statement are negative. EKG Findings - EKG Comments: EKG Findings:: EKG sinus 99 ND 112 QRS 85 QTc 385 - EKG Results: EKG: interpreted by KIMBERLY Past Medical History Past Medical History: No Reported History Additional Past Medical History / Comment(s): Previous term vaginal delivery 3 History of Any Multi-Drug Resistant Organisms: None Reported Past Surgical History: No Surgical Hx Reported Additional Past Surgical History / Comment(s): [place] teeth removed Past Anesthesia/Blood Transfusion Reactions: No Reported Reaction Past Psychological History: No Psychological Hx Reported Smoking Status: Never smoker Past Alcohol Use History: None Reported Past Drug Use History: None Reported - Past Family History Mother History Unknown: Yes Family Medical History: Blood Disorder Additional Family Medical History / Comment(s): ITP autoimmune disorder General Exam Limitations: no limitations General appearance: alert, in no apparent distress Head exam: Present: atraumatic, normocephalic, normal inspection Eye exam: Present: normal appearance, PERRL, EOMI. Absent: scleral icterus, conjunctival injection, periorbital swelling ENT exam: Present: normal exam, mucous membranes moist Neck exam: Present: normal inspection. Absent: tenderness, meningismus, lymphadenopathy Respiratory exam: Present: normal lung sounds bilaterally. Absent: respiratory distress, wheezes, rales, rhonchi, stridor Cardiovascular Exam: Present: regular rate, normal rhythm, normal heart sounds. Absent: systolic murmur, diastolic murmur, rubs, gallop, clicks GI/Abdominal exam: Present: soft, normal bowel sounds. Absent: distended, tenderness, guarding, rebound, rigid Extremities exam: Present: normal inspection, full ROM, normal capillary refill. Absent: tenderness, pedal edema, joint swelling, calf tenderness Back exam: Present: normal inspection Neurological exam: Present: alert, oriented X3, CN II-XII intact Psychiatric exam: Present: normal affect, normal mood Skin exam: Present: warm, dry, intact, normal color. Absent: rash Course Vital Signs 09/01/24 09/01/24 09/01/24 13:25 14:18 15:55 Temperature 98 F Pulse Rate 116 H 90 84 Respiratory 20 18 14 Rate Blood Pressure 143/90 116/74 107/70 O2 Sat by Pulse 96 98 Oximetry - Reevaluation(s) Reevaluation #1: Medical records reviewed Reevaluation #2: Patient symptoms improved Reevaluation #3: Patient informed of results questions answered Reevaluation #4: Was pt. sent in by a medical professional or institution ([facility], [facility]LE[facility], urgent care, hospital, or fpc...) When possible be specific @ -no Did you speak to anyone other than the patient for history (EMS, parent, family, police, friend...)? What history was obtained from this source @ -no Did you review nursing and triage notes (agree or disagree)? Why? @ -agree Are old charts reviewed (outside hosp., previous admission, EMS record, old EKG, old radiological studies, urgent care reports/EKG's, fpc records)? Report findings @ -yes Differential Diagnosis (chest pain, altered mental status, abdominal pain women, abdominal pain men, vaginal bleeding, weakness, fever, dyspnea, syncope, headache, dizziness, GI bleed, back pain, seizure, CVA, palpatations, mental health, musculoskeletal)? @ -prior EKG interpreted by me (3pts min.). @ -yes X-rays interpreted by me (1pt min.). @ -yes negative for acute disease CT interpreted by me (1pt min.). @ -no U/S interpreted by me (1pt. min.). @ -no What testing was considered but not performed or refused? (CT, X-rays, U/S, labs)? Why? @ -none What meds were considered but not given or refused? Why? @ -none Did you discuss the management of the patient with other professionals (professionals i.e. Dr., PA, MISSILEMAN, lab, RT, psych nurse, forensic social worker, process maintenance technician, teacher, development officer, case packer and sealer)? Give summary @ -no Was smoking cessation discussed for >3mins.? @ -no Was critical care preformed (if so, how long)? @ -no Were there social determinants of health that impacted care today? How? (Homelessness, low income, unemployed, alcoholism, drug addiction, transportation, low edu. Level, literacy, decrease access to med. care, penitentiary, rehab)? @ -none Was there de-escalation of care discussed even if they declined (Discuss DNR or withdrawal of care, Hospice)? DNR status @ -no What co-morbidities impacted this encounter? (DM, HTN, Smoking, COPD, CAD, Cancer, CVA, ARF, Chemo, Hep., AIDS, mental health diagnosis, sleep apnea, morbid obesity)? @ -none Was patient admitted / discharged? Hospital course, mention meds given and route, prescriptions, significant lab abnormalities, going to OR and other pertinent info. @ - 29 female to ER presents today for evaluation of chest pain. Normal EKG normal troponin normal lab testing, chest x-ray is normal patient feels well can be discharged home Discharge chest pain with chest pain Undiagnosed new problem with uncertain prognosis? @ -no Drug Therapy requiring intensive monitoring for toxicity (Heparin, Nitro, Insulin, Cardizem)? @ -no Were any procedures done? @ -no Diagnosis/symptom? @ - Acute, or Chronic, or Acute on Chronic? @ -Acute Uncomplicated (without systemic symptoms) or Complicated (systemic symptoms)? @ -Complicated Side effects of treatment? @ -no Exacerbation, Progression, or Severe Exacerbation? @ -exacerbation Poses a threat to life or bodily function? How? (Chest pain, [place], [place], pneumonia, PE, COPD, DKA, ARF, appy, cholecystitis, CVA, Diverticulitis, Homicidal, Suicidal, threat to staff... and all critical care pts) @ -yes with chest pain Reevaluation #5: Differential Chest Pain: Stable Angina, Unstable Angina, STEMI, NSTEMI Aortic Dissection, Pneumothorax, Musculoskeletal, Esophageal Spasm GERD, Cholecystitis, Pancreatitis, Zoster, this is not meant to be an all-inclusive list. Chest Pain MDM - MDM 29 female to ER presents today for evaluation of chest pain. Normal EKG normal troponin normal lab testing, chest x-ray is normal patient feels well can be discharged home Disposition Clinical Impression: Atypical chest pain, Chest pain Disposition: HOME SELF-CARE Condition: Good Instructions (If sedation given, give patient instructions): Chest Pain (ED), Costochondritis (ED) Is patient prescribed a controlled substance at d/c from ED?: No Referrals: Nonstaff,Physician [Primary Care Provider] - 1-2 days Time of Disposition: 15:20
[2024-09-01] MEDS: SODIUM CHLORIDE 0.9% 1,000 ML IV STA (14:19)
[2024-09-01 14:21] LABS: Basophils # (A) 0.03 10*3/uL (0.00-0.10); Basophils % (A) 0.5 %; Eosinophils # (A) 0.04 10*3/uL (0.04-0.35); Eosinophils % (A) 0.6 %; HCT 33.7 % (37.2-46.3); HGB 11.7 g/dL (12.0-15.0); Lymphocytes # (A) 1.39 10*3/uL (0.90-5.00); Lymphocytes % (A) 22.2 %; MCH 31.2 pg (27.0-32.0); MCHC 34.7 g/dL (32.0-37.0); MCV 89.9 fL (80.0-97.0); Mean Platelet Volume 10.3 fL (9.5-12.2); Monocytes # (A) 0.48 10*3/uL (0.20-1.00); Monocytes % (A) 7.7 %; Neutrophils # (A) 4.31 10*3/uL (1.80-7.70); Neutrophils % (A) 68.7 %; Platelet Count 206 10*3/uL (140-440); RBC 3.75 10*6/uL (4.10-5.20); RDW 12.4 % (11.5-14.5); WBC 6.27 10*3/uL (4.50-10.00)
[2024-09-01 14:30] LABS: INR 0.9 (<1.2); Partial Thromboplastin Time 24.1 sec (22.0-30.0); Prothrombin Time 10.1 sec (10.0-12.5)
[2024-09-01 14:33] LABS: ALT 11 U/L (4-34); AST 15 U/L (14-36); African American GFR (CKD) >90 (>60 ml/min/1.73 sqM); Albumin 3.7 g/dL (3.5-5.0); Alkaline Phosphatase 51 U/L (38-126); Anion Gap 5 mmol/L; Blood Urea Nitrogen 12 mg/dL (7-17); Calcium 8.6 mg/dL (8.4-10.2); Carbon Dioxide 23 mmol/L (22-30); Chloride 106 mmol/L (98-107); Glucose 100 mg/dL (74-99); Lipase 70 U/L (23-300); Magnesium 1.9 mg/dL (1.6-2.3); Non-African American GFR(CKD) >90 (>60 ml/min/1.73 sqM); Potassium 4.1 mmol/L (3.5-5.1); Sodium 134 mmol/L (137-145); Total Bilirubin 0.3 mg/dL (0.2-1.3); Total Protein 6.6 g/dL (6.3-8.2)
[2024-09-01] MEDS: ACETAMINOPHEN IV (For NPO) 1,000 MG in EMPTY BAG 1 BAG IVPB STA (14:40)
[2024-09-01 14:42] LABS: NT-Pro-B-Type Natriuretic Pept 46 pg/mL
--- NOTE | 2024-09-01 14:50 | XR ---
EXAMINATION TYPE: XR chest 2V DATE OF EXAM: 09/01/2024 CLINICAL INDICATION: Female, 29 years old with history of Chest Pain, TECHNIQUE: Frontal and lateral views of the chest are obtained. COMPARISON: None FINDINGS: Overlying EKG leads and bra strap are present. There is no focal air space opacity, pleura l effusion, or pneumothorax seen. The cardiac silhouette size is within normal limits. The osseous structures are intact. IMPRESSION: No acute process. [facility], , 09/01/2024 2:48 PM
[2024-09-01 15:05] LABS: Appearance,Urine Cloudy (Clear); Bacteria,Urine Moderate /hpf; Bilirubin,Urine Negative (Negative); Blood,Urine Negative (Negative); Color,Urine Colorless; Glucose,Urine (UA) Negative (Negative); Ketones,Urine Negative (Negative); Leukocyte Esterase,Urine Trace (Negative); Mucus,Urine Rare /hpf; Nitrite,Urine Negative (Negative); Protein,Urine Negative (Negative); RBC,Urine <1 /hpf (0-5); Squamous Epithelial Cell,Urine 13 /hpf (0-4); Urobilinogen,Urine <2.0 mg/dL (<2.0); WBC,Urine 2 /hpf (0-5)
[2024-09-01 16:01] VITALS: BP 107/70; PULSE 84; RESP 14
== END 2024-09-01 16:09 | disposition home or self-care (01) ==
LOC: EC 13:24
DX: R07.89 Other chest pain (principal)
CPT/HCPCS: 36415; 93005; 83880; 80053; 83690; 83735; 84484; 85025; 85610; 85730; 81001; 71046; 99285; 96365; 96361; J0131